=== PATIENT | male | born 1960 | race Caucasian/White ===

== ENCOUNTER 2017-06-16 12:09 | Day surgery (SDC) | payer BC ==
[~2017-06-16] VITALS: Ht 182.9 cm; Wt 94.5 kg
[2017-06-16] MEDS ORDERED: FISH OIL + D31 EACH (12:19)
== END 2017-06-16 14:25 | disposition home or self-care (01) ==
LOC: ORSCSDS 12:09
PROVIDERS: Surgery
PROC: 0DBN8ZX Excision of Sigmoid Colon, Via Natural or Artificial Opening Endoscopic, Diagnostic (ICD-10-PCS; principal; 2017-06-16 13:30)
PROC: 0DBK8ZX Excision of Ascending Colon, Via Natural or Artificial Opening Endoscopic, Diagnostic (ICD-10-PCS; principal; 2017-06-16 13:30)
DX: Z12.11 Encounter for screening for malignant neoplasm of colon (principal); D12.2 Benign neoplasm of ascending colon; D12.5 Benign neoplasm of sigmoid colon; Z86.010 Personal history of colon polyps
CPT/HCPCS: 88305

== ENCOUNTER 2021-04-06 06:46 | Day surgery (SDC) | payer BC ==
[~2021-04-06] VITALS: Ht 182.9 cm; Wt 96.6 kg
[~2021-04-06 06:46] MED LIST: DHA100 MG PO; DOCU100 PO; FISH OIL + D31 EACH
--- NOTE | 2021-04-06 07:58 | NUR ---
PT AMBUALTES TO SDS c STEADY GAIT. History, Chart, Medications and Allergies reviewed before start of procedure. Lungs clear T/O to Auscultation. ABD/GROIN CLIPPED AND WIPED. Patient reports completing Chlorhexadine shower X2 prior to admission to hospital. Patient States Post-Procedure ride home has been arranged.
--- NOTE | 2021-04-06 11:37 | NUR ---
Patient up to Ambulate independently. Gait steady. Discharge instructions reviewed with patient. Patient verbalizes understanding. Copy given to patient to take home. Dressing to procedure site clean, dry, intact with no visible drainage, swelling, erythema or bruising noted. Patient States Post-Procedure ride home has been arranged. Discharged via wheelchair to private car for ride home. ALL BELONINGS RTURNED TO PATIENT. PROVIDED SCROTAL SUPPORT.
== END 2021-04-06 11:43 | disposition home or self-care (01) ==
LOC: ORSCMMR 06:46 → ORD 08:15 → ORSCMMR 11:43
PROVIDERS: Surgery
PROC: 0YU60JZ Supplement Left Inguinal Region with Synthetic Substitute, Open Approach (ICD-10-PCS; principal; 2021-04-06 08:15)
DX: K40.90 Unilateral inguinal hernia, without obstruction or gangrene, not specified as recurrent (principal)
CPT/HCPCS: A9270; C1781; J0690; J1100; J1885; J2250; J2405; J2704; J3010; J7120